=== PATIENT | male | born 1970 | race Caucasian/White ===

== ENCOUNTER 2018-01-05 22:06 | Emergency (ER) | payer OTHER ==
[~2018-01-05] VITALS: Ht 177.8 cm; Wt 76.7 kg
[2018-01-05 22:13] VITALS: BP 147/98; Ht 177.8 cm; Wt 76.7 kg
== END 2018-01-06 01:55 | disposition left against medical advice (07) ==
LOC: ED 22:06
DX: Z53.21 Procedure and treatment not carried out due to patient leaving prior to being seen by health care provider (principal)
CPT/HCPCS: G0480